=== PATIENT | male | born 1945 ===

== ENCOUNTER 2021-03-09 13:06 | Outpatient (CLI) | payer OTHER | END 2021-03-09 13:08 | disposition home or self-care (01) | LOC: NUCLEAR 13:06 | PROVIDERS: ATTEND Internal Medicine Hematology & Oncology | DX: D61.811 Other drug-induced pancytopenia (principal); D73.1 Hypersplenism; K76.1 Chronic passive congestion of liver | CPT/HCPCS: 78215; A9541 ==

== ENCOUNTER 2021-05-18 10:11 | Outpatient (CLI) | payer OTHER | END 2021-05-18 10:21 | disposition home or self-care (01) | LOC: RAD 10:11 | PROVIDERS: ATTEND Specialist | DX: J45.998 Other asthma (principal) ==